=== PATIENT | female | born 1970 | race Caucasian/White ===

== ENCOUNTER 2019-06-28 11:28 | Inpatient (IN) ==
--- NOTE | 2019-06-28 11:47 | Emergency Department Note ---
Disposition Clinical Impression: Pyelonephritis, Liver mass Hypotension Qualifiers: Hypotension type: unspecified hypotension type Qualified Code(s): I95.9 - Hypotension, unspecified Disposition: Admitted As Inpatient Condition: Fair Referrals: Lindsey Forte CNP [Primary Care Provider] - Forms: ED Satisfaction Letter, Work/School Release Time of Disposition: 13:45 General Adult HPI - General Chief complaint: ED Abdominal Pain Stated complaint: Flank pain Time Seen by Provider: 06/28/19 11:34 Nursing Notes Reviewed: Yes Vital Signs Reviewed: Yes - History of Present Illness HPI Narrative: The patient was sent here directly from the urgent care this morning because of blood pressure of 82 and the stories that Saturday night, one and a half days ago she had sudden onset of right flank pain which resolved and then returned and said did have urinary frequency and pressure yesterday she has felt warm but has not checked her temperature. Did vomit today. No confusion according the who is in the room. He is concerned about a kidney stone. The patient does not have any blurred vision, rhinorrhea, cough or sneezing and no blood that she is seen in the urine or stool. No pain swallowing numbness of the extremities, skin rash or bruising of the skin. Social history: No smoking, alcohol, drugs - Related Data Allergies Allergy/AdvReac Type Severity Reaction Status Date / Time No Known Allergies Allergy Verified 06/28/19 11:55 All systems ED: reviewed and negative except as stated. Review of Systems: As Per HPI Physical Exam CONSTITUTIONAL: Alert and oriented X3, weak and tired in appearance but not confused HEAD: Normocephalic; atraumatic. EYES: PERRL, no scleral icterus. NOSE: The nose is normal in appearance without rhinorrhea RESP: Normal chest excursion with respiration; breath sounds clear and equal bilaterally; no wheezes, rhonchi, or rales CARD: Regular rhythm, without murmurs, rub or gallop ABD: Non-distended; non-tender, soft,without rigidity, rebound or guarding SKIN: Normal for age and race; warm and dry; no apparent lesions Back: Normal appearance, does have some right CVA tenderness Course Vital Signs Pulse Rate 96 06/28/19 11:30 Respiratory Rate 18 06/28/19 11:30 Blood Pressure 102/66 06/28/19 11:30 O2 Sat by Pulse Oximetry 97 06/28/19 11:30 Temperature 99.2 F 06/28/19 11:39 Pulse Rate 96 06/28/19 11:39 Respiratory Rate 18 06/28/19 11:39 Blood Pressure 114/70 06/28/19 11:55 O2 Sat by Pulse Oximetry 97 06/28/19 11:39 Oxygen Delivery Oxygen Delivery Room Air Medical Decision Making - MDM Narrative Medical decision making narrative: The patient may have pyelonephritis or ureterolithiasis and for that reason labs including lactate and the CT scan are ordered. Urine will be tested. The patient has not used any medications from urgent care. Blood pressure here initially 102 systolic. 2 L IV fluid bolus and started at this time. 1147 I did go back and check on the patient and reviewed the test results and also spoke with the nurse and spoke with the patient and her and she is given be admitted because her blood pressure initially was 82 at urgent care and even know her lactate is okay she is still hypotensive with a pressure in the low 100s and is still receiving IV fluids and she does have pyelonephritis but no evidence of ureteral obstruction so that is good. I did write for 2 g of Rocephin IV. Additionally she has a large liver mass and I did discuss this with the patient and she said maybe 10 or 15 years ago she had a spot on her liver but she said it was small and he told her not to worry about. She is in moderate to severe pain at this point and that is the other reason for admission and she will be given fentanyl and Zofran [id number] spoke wiht the hospitalist who accepts 1353 - Medical Records Medical records reviewed: Yes I reviewed the patient's medical records. - Lab Data Lab results reviewed: Yes I reviewed the patient's lab results. Result diagrams: 06/28/19 12:10 06/28/19 12:10 Lab Results 06/28/19 06/28/19 06/28/19 Range/Units 12:00 12:10 12:10 WBC 9.8 (4.3-11.1) K/mcL RBC 3.85 (3.82-4.97) M/mcL Hgb 12.2 (11.5-15.4) g/dL Hct 37.7 (35.3-44.9) % MCV 97.9 (83.0-100.0) fL MCH 31.7 (28.0-33.3) pg MCHC 32.4 (31.6-35.5) g/dL RDW 17.1 H (11.5-14.5) % Plt Count 166 (140-400) K/mcL MPV 10.8 (9.4-12.4) fL Sodium 137 (136-145) mEq/L Potassium 3.4 L (3.5-5.1) mEq/L Chloride 104 (98-107) mEq/L Carbon Dioxide 25 (23-29) mEq/L BUN 8 (6-20) mg/dL Creatinine 0.69 (0.60-1.20) mg/dL Est GFR ( Amer) > 60 (> 60) Est GFR (Non-Af Amer) > 60 (> 60) BUN/Creatinine Ratio 12 (6-26) Glucose 87 (70-105) mg/dL Calculated Osmolality 282 (280-300) Lactic Acid (0.5-2.2) mmol/L Calcium 9.3 (8.6-10.3) mg/dL Urine Color Yellow (Yellow) Urine Clarity Cloudy A (Clear) Urine pH 6.5 (5.0-8.0) pH Units Ur Specific [place] 1.007 L (1.010-1.025) Urine Protein 30 H (Neg-Trace) mg/dL Urine Glucose (UA) Normal (Normal) mg/dL Urine Ketones Negative (Negative) mg/dL Urine Blood Moderate H (Negative) Urine Nitrite Positive A (Negative) Urine Bilirubin Negative (Negative) Urine Urobilinogen Normal (Normal) mg/dL Ur Leukocyte Esterase Large H (Negative) Urine Microscopic RBC 3-5 H (0-3) per hpf Urine Microscopic WBC TNTC H (0-3) per hpf Ur Squamous Epith Cells Many H (None-Few) per lpf Urine Bacteria Many H (None-Few) per hpf Hyaline Casts None Seen (None-Few) per lpf 06/28/19 Range/Units 12:10 WBC (4.3-11.1) K/mcL RBC (3.82-4.97) M/mcL Hgb (11.5-15.4) g/dL Hct (35.3-44.9) % MCV (83.0-100.0) fL MCH (28.0-33.3) pg MCHC (31.6-35.5) g/dL RDW (11.5-14.5) % Plt Count (140-400) K/mcL MPV (9.4-12.4) fL Sodium (136-145) mEq/L Potassium (3.5-5.1) mEq/L Chloride (98-107) mEq/L Carbon Dioxide (23-29) mEq/L BUN (6-20) mg/dL Creatinine (0.60-1.20) mg/dL Est GFR ( Amer) (> 60) Est GFR (Non-Af Amer) (> 60) BUN/Creatinine Ratio (6-26) Glucose (70-105) mg/dL Calculated Osmolality (280-300) Lactic Acid 0.5 (0.5-2.2) mmol/L Calcium (8.6-10.3) mg/dL Urine Color (Yellow) Urine Clarity (Clear) Urine pH (5.0-8.0) pH Units Ur Specific [place] (1.010-1.025) Urine Protein (Neg-Trace) mg/dL Urine Glucose (UA) (Normal) mg/dL Urine Ketones (Negative) mg/dL Urine Blood (Negative) Urine Nitrite (Negative) Urine Bilirubin (Negative) Urine Urobilinogen (Normal) mg/dL Ur Leukocyte Esterase (Negative) Urine Microscopic RBC (0-3) per hpf Urine Microscopic WBC (0-3) per hpf Ur Squamous Epith Cells (None-Few) per lpf Urine Bacteria (None-Few) per hpf Hyaline Casts (None-Few) per lpf - Radiology Data Radiology results reviewed: Yes I reviewed the patient's radiology results.
[2019-06-28] MEDS: 0.9 % Sodium Chloride 1,000 ML IVC SCH ×3 (12:09→17:45)
[2019-06-28 12:14] LABS: Bilirubin,Urine Negative (Negative); Blood,Urine Moderate (Negative); Clarity,Urine Cloudy (Clear); Color,Urine Yellow (Yellow); Glucose,Urine (UA) Normal (Normal); Ketones,Urine Negative (Negative); Leukocyte Esterase,Urine Large (Negative); Nitrite,Urine Positive (Negative); PH,Urine 6.5 pH Units (5.0-8.0); Protein,Urine 30 mg/dL (Neg-Trace); Specific Gravity,Urine 1.007 (1.010-1.025); Urobilinogen,Urine Normal (Normal)
[2019-06-28 12:17] LABS: Bacteria,Urine Many per hpf (None-Few); Hyaline Casts,Urine None Seen per lpf (None-Few); Squamous Epithelial Cell,Urine Many per lpf (None-Few); WBC,Urine TNTC per hpf (0-3)
[2019-06-28 12:30] LABS: Hematocrit 37.7 % (35.3-44.9); Hemoglobin 12.2 g/dL (11.5-15.4); Mean Corpuscular HGB Conc 32.4 g/dL (31.6-35.5); Mean Corpuscular Hemoglobin 31.7 pg (28.0-33.3); Mean Corpuscular Volume 97.9 fL (83.0-100.0); Mean Platelet Volume 10.8 fL (9.4-12.4); Platelet Count 166 K/mcL (140-400); Red Blood Count 3.85 M/mcL (3.82-4.97); Red Cell Distribution Width 17.1 % (11.5-14.5); White Blood Count 9.8 K/mcL (4.3-11.1)
[2019-06-28 12:51] LABS: BUN/Creatinine Ratio 12 (6-26); Blood Urea Nitrogen 8 mg/dL (6-20); Calcium 9.3 mg/dL (8.6-10.3); Carbon Dioxide 25 mEq/L (23-29); Chloride 104 mEq/L (98-107); Glucose 87 mg/dL (70-105); Osmolality,Calculated 282 (280-300); Potassium 3.4 mEq/L (3.5-5.1); Sodium 137 mEq/L (136-145); eGFR For African Americans > 60 (> 60); eGFR For Non-African Americans > 60 (> 60)
[2019-06-28] MEDS ORDERED: cefTRIAXone 2,000 MG in Water for inj. (sterile) 20 ML IVP ONE (13:42)
[2019-06-28] MEDS ORDERED: *HR* FentaNYL (PF) 100 MCG/2 ML VIAL IVP ONE (13:42)
[2019-06-28] MEDS ORDERED: Ondansetron 4 MG/2 ML VIAL IVP ONE (13:42)
--- NOTE | 2019-06-28 14:11 | Event Note ---
Date of Encounter: 06/28/19 Time of Encounter: 14:45 to serve as attending attestation pending completion of H&P by resident physician I examined this patient and my medical decision-making was reviewed with the Resident Physician Dr Martinez. I agree with the documented findings, disposition and treatment plan as described except to the extent set forth below. Ms Emerson is being observed for UTI and Suspected Pyelonephritis awake, at bedside. admits to right flank and cva pain, some nausea but denies emesis and is tolerating oral intake. she is chattering her teeth and is cold with IVF running. She can control it and denies rigors. temp taken at bedside at that time normal. discussed test results and answered all questions. gen- alert, awake,appears stated age, fatigued appearing cv- reg rate and rhythm, normal s1,s2, no murmurs appreciated lungs- ctabl, no wheezing, rhonchi or crackles abd- soft, diffusely guards in anticipation of palpation, but no rigidity, non distended, + bs neuro- AAOx3, CN grossly intact, no focal deficits Flank Pain UTI and Suspected Pyelonephritis She does not meet SIRS or sepsis criteria at this time, has only HR in 90s no prior ucxs for comparison, CT a/p reviewed -cont IV rocephin, IV fluids, prn pain control, ucx ordered as it does not appear to have been sent from ED based on orders -send hcg test Incidental Large Liver Mass 15.3x14.8x17.[address] reviewed- large hemangioma vs focal nodular hyperplasia -obtain hepatic protocol MRI for further eval Hypokalemia- PO repletion further dx and plan as noted by resident
--- NOTE | 2019-06-28 14:17 | Internal Med History&Physical ---
<Reshma Diane - Last Filed: 06/28/19 15:34> Date of Encounter: 06/28/19 Internal Medicine - H&P: HPI History of present illness: Ms. Emerson is a 48 year old female Internal Medicine - H&P: Meds Multivitamin [Daily Multiple Vitamin] 1 each PO DAILY 06/28/19 [History] Allergy/AdvReac Type Severity Reaction Status Date / Time No Known Allergies Allergy Verified 06/28/19 11:55 All Systems PM: A 10-system review of systems was performed and is negative for pertinent findings except as documented above in the HPI. - Constitutional Vitals: Temp Pulse Resp BP Pulse Ox 99.2 F 97 16 116/71 97 06/28/19 14:05 06/28/19 14:05 06/28/19 14:05 06/28/19 14:05 06/28/19 14:05 Internal Med - H&P Results - Labs CBC & Chem 7: 06/28/19 12:10 06/28/19 12:10 Labs: Short CBC 06/28/19 Range/Units 12:10 WBC 9.8 (4.3-11.1) K/mcL Hgb 12.2 (11.5-15.4) g/dL Hct 37.7 (35.3-44.9) % Plt Count 166 (140-400) K/mcL BMP 06/28/19 12:10 Sodium 137 Potassium 3.4 L Chloride 104 Carbon Dioxide 25 BUN 8 Creatinine 0.69 Glucose 87 Calcium 9.3 Urine 06/28/19 Range/Units 12:00 Urine Color Yellow (Yellow) Urine Clarity Cloudy A (Clear) Urine pH 6.5 (5.0-8.0) pH Units Ur Specific [place] 1.007 L (1.010-1.025) Urine Protein 30 H (Neg-Trace) mg/dL Urine Glucose (UA) Normal (Normal) mg/dL - Impressions ITS Impressions Chest X-Ray 06/28/19 12:11 IMPRESSION: Negative chest D/ / Ranjith Bill MD / Ranjith Bill MD Interpreting Provider: Ranjith Bill MD Abdomen/Pelvis CT 06/28/19 13:02 IMPRESSION: Large right hepatic mass measuring 15.3 x 14.8 x 17.2 cm with a central scar. Differential considerations include focal nodular hyperplasia and large cavernous hemangiomas. Otherwise, certain carcinomas could have this appearance. Hepatic protocol MRI recommended for further evaluation. Right perinephric inflammation and right-sided urothelial thickening suggesting ascending infectious process. No nephrolithiasis or urinary obstruction. D/ / Brett Haynes MD / Brett Haynes MD Interpreting Provider: Brett Haynes MD - Time Spent With Patient Total time spent is greater than 50% in coordination of care (as documented) at patient's floor/unit and/or counseling patient: - Attending Attestation I examined this patient and my medical decision-making was reviewed with the Resident Physician Dr Martinez. I agree with the documented findings, disposition and treatment plan as described except to the extent set forth below. Ms Emerson is being observed for UTI and Suspected Pyelonephritis awake, at bedside. admits to right flank and cva pain, some nausea but denies emesis and is tolerating oral intake. she is chattering her teeth and is cold with IVF running. She can control it and denies rigors. temp taken at bedside at that time normal. discussed test results and answered all questions. gen- alert, awake,appears stated age, fatigued appearing cv- reg rate and rhythm, normal s1,s2, no murmurs appreciated lungs- ctabl, no wheezing, rhonchi or crackles abd- soft, diffusely guards in anticipation of palpation, but no rigidity, non distended, + bs neuro- AAOx3, CN grossly intact, no focal deficits Flank Pain UTI and Suspected Pyelonephritis She does not meet SIRS or sepsis criteria at this time, has only HR in 90s no prior ucxs for comparison, CT a/p reviewed -cont IV rocephin, IV fluids, prn pain control, ucx ordered as it does not appear to have been sent from ED based on orders -send hcg test Incidental Large Liver Mass 15.3x14.8x17.[address] reviewed- large hemangioma vs focal nodular hyperplasia -obtain hepatic protocol MRI for further eval Hypokalemia- PO repletion further dx and plan as noted by resident <Olegario Martinez S - Last Filed: 06/28/19 22:17> Date of Encounter: 06/28/19 Time of Encounter: 14:17 Internal Medicine - H&P: HPI Chief complaint: Right flank pain Admitted From: Emergency Dept Plans for Post Hospital Care: Home History of present illness: Ms. Emerson is a 48 year old female who is being admitted to our service for pyelonephritis. She states that Saturday night she had mild pain in her right lower back, she thought she had strained a muscle and took some ibuprofen with resolution of her pain. She was pain-free Saturday morning, but began having the same right lower back pain through the afternoon and into the evening on Saturday. The pain worsened through the day, became severe overnight, and was associated with subjective fevers, chills and weakness. She presented to an outside urgent care, where her blood pressure was found to be in the low 80s over the low 60s, she was quickly re-directed to our facility. On presentation to our ED, a CBC was normal, BMP showed only mildly low potassium at 3.4, and urinalysis was positive for urinary tract infection with hematuria. Chest x-ray was normal, CT scan showed a very large hepatic mass, as well as Right perinephric inflammation and right-sided urothelial thickening suggesting ascending infectious process. No nephrolithiasis or urinary obstruction. In the ED, Patient received 75 g of fentanyl, Zofran, 2 L normal saline, 2 g Rocephin. Her pain is currently well controlled on the fentanyl which she received at 13:45. Right now, the patient's complaining of chills, and shivering in spite of wearing several blankets. She reports weakness, fevers, chills, nausea, vomiting, numbness in her feet which she attributes to being cold. She reports the pain began in her right lower back and radiated around to the front of her abdomen and down her legs, described the pain as a spasming, initially responded to OTC pain medications, but was not relieved by same pain meds today. Past Med Surg Social Fam HX - Past Medical History Medical history: no medical history Psychiatric history: no psych history - Social History Smoking Status: Former smoker All Systems PM: A 10-system review of systems was performed and is negative for pertinent findings except as documented above in the HPI. Review of systems: Patient reporting weakness, fevers, chills, nausea, vomiting, numbness in her feet secondary to cold Patient denies chest pain, shortness of breath, headache, blurry vision, double vision, trouble swallowing or speaking, hematemesis, diarrhea, constipation, hematochezia, hematuria, vaginal bleeding, any other significant complaints at this time - Constitutional Vitals: Temp Pulse Resp BP Pulse Ox 99.2 F 97 16 116/71 97 06/28/19 14:05 06/28/19 14:05 06/28/19 14:05 06/28/19 14:05 06/28/19 14:05 Exam: Gen: Awake and alert, Ill appearing, moderate distress, well-nourished, well kempt. Pts is at the bedside, she is shivering in spite of numerous blankets, the shivering seems to judy when she speaks. Head: Normocephalic, atraumatic Eyes: EOMI, no scleral icterus ENT: Mucous membranes moist, no oropharyngeal erythema CV: S1-S2 present, regular at a rate of approximately 90, no murmurs rubs or gallops Pulm: CTAB, not tachypneic, no respiratory distress, no increased work of breathing Abd: Soft, mildly tender to palpation RLQ, nondistended, no reboundtenderness with some voluntary guarding. EXT: Grossly intact motor strength in all 4 extremities, no lower extremity edema, no distal cyanosis or pallor. Capillary refill in bilateral lower extremities <2 seconds Skin: Warm, dry, intact, no rashes or lesions noted Neuro: Cranial nerves II-XII grossly intact, no focal neurologic deficits Psych: Mood and affect altered by illness, Answers questions with intact judgment, appropriate insight, and linear thought Internal Med - H&P Results - Labs CBC & Chem 7: 06/28/19 12:10 06/28/19 12:10 Labs: Short CBC 06/28/19 Range/Units 12:10 WBC 9.8 (4.3-11.1) K/mcL Hgb 12.2 (11.5-15.4) g/dL Hct 37.7 (35.3-44.9) % Plt Count 166 (140-400) K/mcL BMP 06/28/19 12:10 Sodium 137 Potassium 3.4 L Chloride 104 Carbon Dioxide 25 BUN 8 Creatinine 0.69 Glucose 87 Calcium 9.3 Urine 06/28/19 Range/Units 12:00 Urine Color Yellow (Yellow) Urine Clarity Cloudy A (Clear) Urine pH 6.5 (5.0-8.0) pH Units Ur Specific [place] 1.007 L (1.010-1.025) Urine Protein 30 H (Neg-Trace) mg/dL Urine Glucose (UA) Normal (Normal) mg/dL - Impressions ITS Impressions Chest X-Ray 06/28/19 12:11 IMPRESSION: Negative chest D/ / Ranjith Bill MD / Ranjith Bill MD Interpreting Provider: Ranjith Bill MD Abdomen/Pelvis CT 06/28/19 13:02 IMPRESSION: Large right hepatic mass measuring 15.3 x 14.8 x 17.2 cm with a central scar. Differential considerations include focal nodular hyperplasia and large cavernous hemangiomas. Otherwise, certain carcinomas could have this appearance. Hepatic protocol MRI recommended for further evaluation. Right perinephric inflammation and right-sided urothelial thickening suggesting ascending infectious process. No nephrolithiasis or urinary obstruction. D/ / Brett Haynes MD / Brett Haynes MD Interpreting Provider: Brett Haynes MD - Assessment and Plan (1) Pyelonephritis Current Visit: Yes Status: Acute Assessment and plan: Patient with significant right-sided back/flank pain Urinalysis shows florid infection with hematuria Subjective fevers and chills, temperature taken at bedside by myself was 98.9 * 2 g Rocephin given in the ED, continue 1 g daily * Lab was contacted and order for urine cultures was added, using the initial sample * Pain management with tramadol while inpatient * BMP grossly normal, oral potassium ordered. Repeat BMP and CBC every morning * Zofran ODT for nausea and vomiting (2) Hypotension Current Visit: Yes Status: Acute Assessment and plan: Blood pressures in our facility have ranged from 102/66 to 116/71 2 L fluid bolus given while in the ED Patient without any history of cardiac or hemodynamic problems in the past * Vital sign checks Q4 hrs x2, Q shift thereafter Qualifiers: Hypotension type: unspecified hypotension type Qualified Code(s): I95.9 - Hypotension, unspecified (3) Liver mass Current Visit: Yes Status: Acute Assessment and plan: Incidental finding of very large liver mass, likely represents hemangioma Patient's pain has only been present for the last 2 days, and size of the liver mass suggests it has been growing for a very long time Laboratory evaluation showed liver function within normal limits * Avoid NSAIDs * Follow-up outpatient - Summary of Assessment and Plan Summary of Assessment and Plan: * IV Rocephin 1 g daily * Urine cultures * Pain management * Antiemetics * Fluid replenishment * Advance diet as tolerated tomorrow * Outpatient follow-up for incidental liver finding - Time Spent With Patient Total time spent is greater than 50% in coordination of care (as documented) at patient's floor/unit and/or counseling patient:
[2019-06-28] MEDS ORDERED: Ondansetron 4 MG/2 ML VIAL IVP PRN (14:21)
[2019-06-28] MEDS ORDERED: Naloxone 0.4 MG/ML INJ IVP PRN (14:25)
[2019-06-28] MEDS ORDERED: traMADol 50 MG TABLET PO PRN (14:25)
[2019-06-28] MEDS ORDERED: *HR* HYDROcodone/Acet 5/325 mg TABLET PO PRN (15:27)
[2019-06-28] MEDS ORDERED: *HR* OxyCODONE Immed Rel 5 MG TABLET PO PRN (15:27)
[2019-06-28 16:21] LABS: Alanine Aminotransferase 19 Units/L (7-52); Albumin 3.9 g/dL (3.5-5.7); Albumin/Globulin Ratio 1.3 (1.1-2.2); Alkaline Phosphatase 110 Units/L (34-104); Aspartate Amino Transferase 27 Units/L (13-39); Bilirubin,Direct 0.4 mg/dL (0.0-0.2); Bilirubin,Indirect 0.8 mg/dL (0.0-1.2); Bilirubin,Total 1.2 mg/dL (0.3-1.0); Globulin 2.9 g/dL (2.4-3.5); Total Protein 6.8 g/dL (6.4-8.9)
[2019-06-28] MEDS ORDERED: Ondansetron ODT 4 MG TAB.RAPDIS SL STA (17:08)
[2019-06-28] MEDS ORDERED: Acetaminophen IV 1,000 MG/100 ML INFUS..BTL IVPB STA (17:26)
[2019-06-29] MEDS: 0.9 % Sodium Chloride 1,000 ML IVC SCH ×4 (01:26→22:28)
[2019-06-29] MEDS: Acetaminophen 325 MG TABLET PO PRN ×3 (03:33→18:44)
[2019-06-29 04:21] LABS: Basophils % 0.2 %; Hematocrit 32.9 % (35.3-44.9); Immature Granulocytes % 0.7 % (0-4); Lymphocytes # 0.4 K/mcL (0.6-4.6); Lymphocytes % 3.9 %; Mean Corpuscular HGB Conc 31.9 g/dL (31.6-35.5); Mean Corpuscular Hemoglobin 31.8 pg (28.0-33.3); Mean Corpuscular Volume 99.7 fL (83.0-100.0); Mean Platelet Volume 10.5 fL (9.4-12.4); Monocytes # 0.9 K/mcL (0.0-1.3); Monocytes % 8.8 %; Neutrophils # 9.1 K/mcL (1.6-8.9); Platelet Count 175 K/mcL (140-400); Red Cell Distribution Width 17.4 % (11.5-14.5); Segmented Neutrophils % 86.4 %; White Blood Count 10.5 K/mcL (4.3-11.1)
[2019-06-29 04:26] LABS: Hemoglobin 10.5 g/dL (11.5-15.4)
[2019-06-29 04:29] LABS: INR 1.5; Prothrombin Time 17.2 Seconds (9.4-12.1)
[2019-06-29 04:40] LABS: Alanine Aminotransferase 16 Units/L (7-52); Albumin 3.3 g/dL (3.5-5.7); Albumin/Globulin Ratio 1.3 (1.1-2.2); Alkaline Phosphatase 96 Units/L (34-104); Aspartate Amino Transferase 22 Units/L (13-39); BUN/Creatinine Ratio 13 (6-26); Bilirubin,Total 0.8 mg/dL (0.3-1.0); Blood Urea Nitrogen 8 mg/dL (6-20); Calcium 7.7 mg/dL (8.6-10.3); Carbon Dioxide 21 mEq/L (23-29); Chloride 106 mEq/L (98-107); Globulin 2.5 g/dL (2.4-3.5); Glucose 117 mg/dL (70-105); Magnesium 1.6 mg/dL (1.6-2.6); Osmolality,Calculated 277 (280-300); Potassium 3.4 mEq/L (3.5-5.1); Sodium 134 mEq/L (136-145); Total Protein 5.8 g/dL (6.4-8.9); eGFR For African Americans > 60 (> 60); eGFR For Non-African Americans > 60 (> 60)
[2019-06-29] MEDS ORDERED: 0.9 % Sodium Chloride 1,000 ML IVC SCH (07:00)
[2019-06-29] MEDS ORDERED: 0.9 % Sodium Chloride 500 ML IVC ONE (08:07)
--- NOTE | 2019-06-29 08:08 | Internal Med Progress Note ---
<Reshma Diane - Last Filed: 06/29/19 12:48> Hospitalist Progress Note - Encounter Date of Encounter: 06/29/19 - Exam Vitals: Temp Pulse Resp BP Pulse Ox 99.8 F H 81 15 122/67 95 06/29/19 11:32 06/29/19 10:09 06/29/19 10:09 06/29/19 10:09 06/29/19 10:09 - Time Spent with Patient Total time spent is greater than 50% in coordination of care (as documented) at patient's floor/unit and/or counseling patient: Internal Medicine: Result - Labs CBC & Chem 7: 06/29/19 04:06 06/29/19 04:06 Labs: Short CBC 06/29/19 Range/Units 04:06 WBC 10.5 (4.3-11.1) K/mcL Hgb 10.5 L D (11.5-15.4) g/dL Hct 32.9 L (35.3-44.9) % Plt Count 175 (140-400) K/mcL Neutrophils # 9.1 H (1.6-8.9) K/mcL BMP 06/28/19 06/29/19 12:10 04:06 Sodium 137 134 L Potassium 3.4 L 3.4 L Chloride 104 106 Carbon Dioxide 25 21 L BUN 8 8 Creatinine 0.69 0.64 Glucose 87 117 H Calcium 9.3 7.7 L Liver Function 06/28/19 06/29/19 Range/Units 12:10 04:06 Total Bilirubin 1.2 H 0.8 (0.3-1.0) mg/dL Direct Bilirubin 0.4 H (0.0-0.2) mg/dL AST 27 22 (13-39) Units/L ALT 19 16 (7-52) Units/L Alkaline Phosphatase 110 H 96 (34-104) Units/L Albumin 3.9 3.3 L (3.5-5.7) g/dL - ABG Interpretation ABG results: PT/INR, D-dimer PT 17.2 Seconds (9.4-12.1) H 06/29/19 04:06 - Impressions Impressions Abdomen/Pelvis CT 06/28/19 13:02 IMPRESSION: Large right hepatic mass measuring 15.3 x 14.8 x 17.2 cm with a central scar. Differential considerations include focal nodular hyperplasia and large cavernous hemangiomas. Otherwise, certain carcinomas could have this appearance. Hepatic protocol MRI recommended for further evaluation. Right perinephric inflammation and right-sided urothelial thickening suggesting ascending infectious process. No nephrolithiasis or urinary obstruction. D/ / Brett Haynes MD / Brett Haynes MD Interpreting Provider: Brett Haynes MD Consult Discharge Plan - Plan Referrals: Lindsey Forte, RECEPTIONIST CLERK [Primary Care Provider] - - Attending Attestation I examined this patient and my medical decision-making was reviewed with the Resident Physician Dr Sparrow. I agree with the documented findings, disposition and treatment plan as described except to the extent set forth below. Ms Emerson is being observed for UTI and Suspected Pyelonephritis awake, no family present. Had fevers and chills overnight. abd pain currently tolerable, fatigued. no nausea or emesis. cont right flank pain gen- alert, awake,appears stated age, fatigued appearing cv- reg rate and rhythm, normal s1,s2, no murmurs appreciated lungs- ctabl, no wheezing, rhonchi or crackles abd- soft, diffusely guards in anticipation of palpation, but no rigidity, non distended, + bs neuro- AAOx3, CN grossly intact, no focal deficits Flank Pain UTI and Suspected Pyelonephritis She does not meet sepsis criteria at this time,fever but no HR, RR or wbc elevation -broaden abx given fevers overnight while awaiting cxs, recx if fevers today, IV fluids, prn pain control w BP parameters in place Incidental Large Liver Mass 15.3x14.8x17.[address] reviewed- large hemangioma vs focal nodular hyperplasia -obtain hepatic protocol MRI for further eval when pt medically stable and will discuss further w cycle consultant as needed Acute anemia without evidence of bleeding- will monitor closely, has been receiving high rate IVFs, repeat hgb this afternoon, if worsened abd pain or significant hgb dropping w pain will re image pt further dx and plan as noted by resident <Garrick Sparrow - Last Filed: 06/29/19 18:15> Hospitalist Progress Note - Encounter Date of Encounter: 06/29/19 Time of Encounter: 08:25 - Subjective Interval History: patient is resting in bed at time of examination. She does appear lethargic on examination. She says that overnight she did have significant fevers, chills and was sweating some overnight. She says as of this morning she did develop some chest tightness and has some cough as well as a sore throat. She says that they feel like URI-like symptoms, and that they developed just a little bit before I entered the room. She is not having any other significant symptoms this morning. She did have multiple episodes of urination this morning which were nonpainful and had no blood or discharge. She is not having any significant pelvic or back pain. Nor is she having any abdominal pain. She has no other acute complaints at this time. - Exam Vitals: Temp Pulse Resp BP Pulse Ox 98.3 F 78 15 89/54 94 06/29/19 06:29 06/29/19 06:29 06/29/19 06:29 06/29/19 06:29 06/29/19 06:29 Exam: Gen: Vitals noted. patient appears lethargic Eyes: anicteric sclerae, moist conjunctivae; no lid-lag HENT: Atraumatic; oropharynx clear with moist mucous membranes and no mucosal ulcerations; normal hard and soft palate Neck: Trachea midline; supple, no thyromegaly or lymphadenopathy Cardiac: RRR, no murmur, +S1/S2 Pulmonary: CTA bilaterally, no wheezes, rales or rhonchi, equal chest expansion Abdomen: soft, nontender, no guarding. No masses or hepatosplenomegaly MSK: ROM intact, no joint swelling noted Extremities: no BLE edema, nontender calf, no cyanosis or clubbing Skin: Normal temperature, turgor and texture; no rash, ulcers or subcutaneous nodules Neuro: moves all extremities, no focal deficits. Psych: Appropriate mood and behavior. A&Ox3 - Assessment and Plan (1) Sepsis Current Visit: Yes Status: Acute Assessment and Plan: sepsis secondary to acute pyelonephritis SIRS Criteria: T 102, HR 103, RR 20, BP 88/55. sources pyelonephritis Abdominal CT on 06/28/19 demonstrates right perinephric inflammation and right- sided urothelial thickening suggesting ascending infectious process UA on admission demonstrated significant nitrates and leukocyte Estrace as well as too numerous to count WBCs The patient does have no more complaints of urinary frequency, dysuria, hematuria this time, however is clinically fever having significantly Despite adequate fluid resuscitation and antibiotic She has received nearly 3 L of fluids IV, however her blood pressure does remain soft Cultures 06/28/19 blood cultures 2 NGTD 06/28/19 urine cultures NGTD Antibiotics Rocephin Day 2 Plan Broaden coverage to vancomycin and Zosyn Pending cultures Bolus 500 mL, continue maintenance fluids at 150 mL an hour afterward I will check a flu swab due to the patient's symptoms If the patient continues to have fevers, may consider repeat cultures and chest x-ray (2) Pyelonephritis Current Visit: Yes Status: Acute Assessment and Plan: pyelonephritis, treatment and plan as above (3) Liver mass Current Visit: Yes Status: Acute Assessment and Plan: Incidental finding of very large liver mass, likely represents hemangioma Patient's pain has only been present for the last 2 days, and size of the liver mass suggests it has been growing for a very long time Laboratory evaluation showed liver function within normal limits our goal would be to attempt for an MRI today, however the patient cannot tolerate this given the severity of her infection We will attempt for MRI tomorrow DVT Prophylaxis: SCDs - Time Spent with Patient Total time spent is greater than 50% in coordination of care (as documented) at patient's floor/unit and/or counseling patient: Internal Medicine: Result - Labs CBC & Chem 7: 06/29/19 13:03 06/29/19 04:06 Labs: Short CBC 06/28/19 06/29/19 Range/Units 12:10 04:06 WBC 9.8 10.5 (4.3-11.1) K/mcL Hgb 12.2 10.5 L D (11.5-15.4) g/dL Hct 37.7 32.9 L (35.3-44.9) % Plt Count 166 175 (140-400) K/mcL Neutrophils # 9.1 H (1.6-8.9) K/mcL BMP 06/28/19 06/29/19 12:10 04:06 Sodium 137 134 L Potassium 3.4 L 3.4 L Chloride 104 106 Carbon Dioxide 25 21 L BUN 8 8 Creatinine 0.69 0.64 Glucose 87 117 H Calcium 9.3 7.7 L Liver Function 06/28/19 06/29/19 Range/Units 12:10 04:06 Total Bilirubin 1.2 H 0.8 (0.3-1.0) mg/dL Direct Bilirubin 0.4 H (0.0-0.2) mg/dL AST 27 22 (13-39) Units/L ALT 19 16 (7-52) Units/L Alkaline Phosphatase 110 H 96 (34-104) Units/L Albumin 3.9 3.3 L (3.5-5.7) g/dL Urine 06/28/19 Range/Units 12:00 Urine Color Yellow (Yellow) Urine Clarity Cloudy A (Clear) Urine pH 6.5 (5.0-8.0) pH Units Ur Specific [place] 1.007 L (1.010-1.025) Urine Protein 30 H (Neg-Trace) mg/dL Urine Glucose (UA) Normal (Normal) mg/dL - ABG Interpretation ABG results: PT/INR, D-dimer PT 17.2 Seconds (9.4-12.1) H 06/29/19 04:06 - Impressions Impressions Chest X-Ray 06/28/19 12:11 IMPRESSION: Negative chest D/ / Ranjith Bill MD / Ranjith Bill MD Interpreting Provider: Ranjith Bill MD Abdomen/Pelvis CT 06/28/19 13:02 IMPRESSION: Large right hepatic mass measuring 15.3 x 14.8 x 17.2 cm with a central scar. Differential considerations include focal nodular hyperplasia and large cavernous hemangiomas. Otherwise, certain carcinomas could have this appearance. Hepatic protocol MRI recommended for further evaluation. Right perinephric inflammation and right-sided urothelial thickening suggesting ascending infectious process. No nephrolithiasis or urinary obstruction. D/ / Brett Haynes MD / Brett Haynes MD Interpreting Provider: Brett Haynes MD <Garrick Sparrow - Last Filed: 06/29/19 18:15> (1) Sepsis Qualifiers: Sepsis type: sepsis due to unspecified organism Sepsis acute organ dysfunction status: without acute organ dysfunction Qualified Code(s): A41.9 - Sepsis, unspecified organism
[2019-06-29] MEDS ORDERED: cefTRIAXone 1,000 MG in Water for inj. (sterile) 10 ML IVP ONE (10:22)
[2019-06-29] MEDS: Piperacillin/Tazobactam 3.375 GM in 0.9 % Sodium Chloride Mini Bag 100 ML IVPB SCH ×2 (11:00→16:01)
[2019-06-29 13:50] LABS: Hematocrit 33.5 % (35.3-44.9); Hemoglobin 10.6 g/dL (11.5-15.4)
[2019-06-29] MEDS ORDERED: cefTRIAXone 1,000 MG in Water for inj. (sterile) 10 ML IVP SCH (14:00)
[2019-06-29] MEDS ORDERED: *HR* HYDROcodone/Acet 5/325 mg TABLET PO PRN (14:42)
[2019-06-29] MEDS: *HR* HYDROcodone/Acet 5/325 mg TABLET PO PRN ×2 (15:09→21:05)
--- NOTE | 2019-06-29 18:32 | Electrocardiograph Report ---
[place] [address] Test Date: 2019-06-28 Pat Name: Jenna Emerson Department: 115 Room: 3A44 Gender: F [employer]: : 1970 Requested By: Reshma Diane Order Number: [id number] Reading MD: Vincent Cook Measurements Intervals [place] Rate: 97 P: 67 TX: 119 QRS: 63 QRSD: 81 T: 14 QT: 337 QTc: 392 Interpretive Statements SINUS RHYTHM Electronically Signed On 06-29-2019 16:44:44 EDT by Vincent Cook
[2019-06-29] MEDS: Ondansetron 4 MG/2 ML VIAL IVP PRN (18:44)
[2019-06-29] MEDS ORDERED: *HR* Promethazine 25 MG/ML VIAL IVP ONE (23:48)
[2019-06-30] MEDS: Piperacillin/Tazobactam 3.375 GM in 0.9 % Sodium Chloride Mini Bag 100 ML IVPB SCH ×2 (00:09→08:03)
[2019-06-30] MEDS: Acetaminophen 325 MG TABLET PO PRN ×2 (02:22→12:00)
[2019-06-30] MEDS: 0.9 % Sodium Chloride 1,000 ML IVC SCH ×2 (05:37→15:24)
[2019-06-30] MEDS: *HR* HYDROcodone/Acet 5/325 mg TABLET PO PRN ×2 (05:37→19:08)
[2019-06-30] MEDS: Ondansetron 4 MG/2 ML VIAL IVP PRN ×2 (05:41→13:32)
[2019-06-30 06:16] LABS: Basophils % 0.3 %; Eosinophils % 0.1 %; Immature Granulocytes % 0.4 % (0-4); Lymphocytes # 0.7 K/mcL (0.6-4.6); Lymphocytes % 8.6 %; Mean Corpuscular HGB Conc 31.3 g/dL (31.6-35.5); Mean Corpuscular Hemoglobin 31.8 pg (28.0-33.3); Mean Corpuscular Volume 101.9 fL (83.0-100.0); Mean Platelet Volume 10.5 fL (9.4-12.4); Monocytes # 0.6 K/mcL (0.0-1.3); Monocytes % 7.3 %; Neutrophils # 6.6 K/mcL (1.6-8.9); Platelet Count 147 K/mcL (140-400); Red Blood Count 3.14 M/mcL (3.82-4.97); Red Cell Distribution Width 17.4 % (11.5-14.5); Segmented Neutrophils % 83.3 %; White Blood Count 7.9 K/mcL (4.3-11.1)
[2019-06-30 06:23] LABS: INR 1.2; Prothrombin Time 13.8 Seconds (9.4-12.1)
[2019-06-30 06:35] LABS: Alanine Aminotransferase 17 Units/L (7-52); Albumin 2.9 g/dL (3.5-5.7); Albumin/Globulin Ratio 1.1 (1.1-2.2); Alkaline Phosphatase 106 Units/L (34-104); Aspartate Amino Transferase 23 Units/L (13-39); BUN/Creatinine Ratio 18 (6-26); Bilirubin,Total 0.6 mg/dL (0.3-1.0); Blood Urea Nitrogen 10 mg/dL (6-20); Calcium 7.5 mg/dL (8.6-10.3); Carbon Dioxide 19 mEq/L (23-29); Chloride 108 mEq/L (98-107); Globulin 2.7 g/dL (2.4-3.5); Glucose 75 mg/dL (70-105); Magnesium 1.8 mg/dL (1.6-2.6); Osmolality,Calculated 284 (280-300); Potassium 3.2 mEq/L (3.5-5.1); Sodium 138 mEq/L (136-145); Total Protein 5.6 g/dL (6.4-8.9); eGFR For African Americans > 60 (> 60); eGFR For Non-African Americans > 60 (> 60)
[2019-06-30] MEDS ORDERED: Aminoglycoside Consult 1 EACH MC ONE (07:46)
--- NOTE | 2019-06-30 08:37 | Internal Med Progress Note ---
<Reshma Diane - Last Filed: 06/30/19 13:13> Hospitalist Progress Note - Encounter Date of Encounter: 06/30/19 - Exam Vitals: Temp Pulse Resp BP Pulse Ox 97.6 F 67 16 110/71 96 06/30/19 11:41 06/30/19 11:41 06/30/19 11:41 06/30/19 11:41 06/30/19 11:41 - Time Spent with Patient Total time spent is greater than 50% in coordination of care (as documented) at patient's floor/unit and/or counseling patient: Internal Medicine: Result - Labs CBC & Chem 7: 06/30/19 05:32 06/30/19 05:32 Labs: Short CBC 06/29/19 06/30/19 Range/Units 13:03 05:32 WBC 7.9 (4.3-11.1) K/mcL Hgb 10.6 L 10.0 L (11.5-15.4) g/dL Hct 33.5 L 32.0 L (35.3-44.9) % Plt Count 147 (140-400) K/mcL Neutrophils # 6.6 (1.6-8.9) K/mcL BMP 06/30/19 05:32 Sodium 138 Potassium 3.2 L Chloride 108 H Carbon Dioxide 19 L BUN 10 Creatinine 0.55 L Glucose 75 Calcium 7.5 L Liver Function 06/30/19 Range/Units 05:32 Total Bilirubin 0.6 (0.3-1.0) mg/dL AST 23 (13-39) Units/L ALT 17 (7-52) Units/L Alkaline Phosphatase 106 H (34-104) Units/L Albumin 2.9 L (3.5-5.7) g/dL - ABG Interpretation ABG results: PT/INR, D-dimer PT 13.8 Seconds (9.4-12.1) H 06/30/19 05:32 Consult Discharge Plan - Plan Referrals: Lindsey Forte, BED RUBBER [Primary Care Provider] - - Attending Attestation I examined this patient and my medical decision-making was reviewed with the Resident Physician Dr Sparrow. I agree with the documented findings, disposition and treatment plan as described except to the extent set forth below. Ms Emerson is being observed for UTI and Suspected Pyelonephritis awake, sweats and chills overnight but abd pain improving and overall feeling more comofrable. exhausted and generally weak. tolerating liquids but nauseated with smell of food gen- alert, awake,appears stated age cv- reg rate and rhythm, normal s1,s2 lungs- ctabl, normal resp effort on room air abd- soft, diffusely tender, but no guarding, no rigidity, non distended, + bs neuro- AAOx3 E Coli UTI and Suspected Pyelonephritis -cxs reviewed, zosyn dc and begin rocephin, cont to monitor for fevers, bl cxs ngtd she was NOT septic on admission, met criteria overnight night 06/29 from 1-3 am only on VS check but by morning no longer met criteria. She is not currently septic. Incidental Large Liver Mass 15.3x14.8x17.[address] reviewed- large hemangioma vs focal nodular hyperplasia -obtain hepatic protocol MRI for further eval, ordered for today given clinical improvement Acute anemia without evidence of bleeding, stable - will monitor closely, has been receiving high rate IVFs, reduce ivfs today further dx and plan as noted by resident <Garrick Sparrow - Last Filed: 06/30/19 16:08> Hospitalist Progress Note - Encounter Date of Encounter: 06/30/19 Time of Encounter: 08:33 - Subjective Interval History: the patient is seen and examined at bedside. She says that she is feeling significantly better than she was yesterday, and her energy level has improved substantially. Overall she does not feel like she is as chilled she was before, and is not as malaised. She did have one episode of fever overnight however this broke relatively quickly and she has not had any problems since.she denies any urinary symptoms including frequency, dysuria, hematuria, although she does still have some minimal right-sided pelvic pain and some back pain. She does admit to minimal shortness of breath and cough, however no sputum production. - Exam Vitals: Temp Pulse Resp BP Pulse Ox 98.6 F 74 16 108/71 95 06/30/19 02:15 06/30/19 02:15 06/30/19 02:15 06/30/19 02:15 06/30/19 02:15 Exam: Gen: Vitals noted. NAD Eyes: anicteric sclerae, moist conjunctivae; no lid-lag HENT: Atraumatic; oropharynx clear with moist mucous membranes and no mucosal ulcerations; normal hard and soft palate Neck: Trachea midline; supple, no thyromegaly or lymphadenopathy Cardiac: RRR, no murmur, +S1/S2 Pulmonary: CTA bilaterally, no wheezes, rales or rhonchi, equal chest expansion Abdomen: soft, nontender, no guarding. No masses or hepatosplenomegaly MSK: ROM intact, no joint swelling noted Extremities: no BLE edema, nontender calf, no cyanosis or clubbing Skin: Normal temperature, turgor and texture; no rash, ulcers or subcutaneous no dules Neuro: moves all extremities, no focal deficits. Psych: Appropriate mood and behavior. A&Ox3 - Assessment and Plan (1) Sepsis Current Visit: Yes Status: Acute Assessment and Plan: sepsis secondary to acute pyelonephritis, resolved SIRS Criteria at time of diagnosis: T 102, HR 103, RR 20, BP 88/55. sources pyelonephritis Abdominal CT on 06/28/19 demonstrates right perinephric inflammation and right- sided urothelial thickening suggesting ascending infectious process UA on admission demonstrated significant nitrates and leukocyte Estrace as well as too numerous to count WBCs The patient has improved significantly overnight, with only one mild fever Cultures have shown GNR in urine. Flu swab negative Cultures 06/28/19 blood cultures 2 NGTD 06/28/19 urine cultures Escherichia coli, insensitive to Zosyn Antibiotics Total Antibiotic Day 3 Vancomycin Day 2 Zosyn Day 2 Plan stop Zosyn, switched to Rocephin Stop vancomycin we will slow IV maintenance fluids (2) Pyelonephritis Current Visit: Yes Status: Acute Assessment and Plan: pyelonephritis, treatment and plan as above (3) Liver mass Current Visit: Yes Status: Acute Assessment and Plan: Incidental finding of very large liver mass, likely represents hemangioma Laboratory evaluation showed liver function within normal limits except for INR 1.5 Attempt to order MRI today DVT Prophylaxis: SCDs - Time Spent with Patient Total time spent is greater than 50% in coordination of care (as documented) at patient's floor/unit and/or counseling patient: Internal Medicine: Result - Labs CBC & Chem 7: 06/30/19 05:32 06/30/19 05:32 Labs: Short CBC 06/29/19 06/30/19 Range/Units 13:03 05:32 WBC 7.9 (4.3-11.1) K/mcL Hgb 10.6 L 10.0 L (11.5-15.4) g/dL Hct 33.5 L 32.0 L (35.3-44.9) % Plt Count 147 (140-400) K/mcL Neutrophils # 6.6 (1.6-8.9) K/mcL BMP 06/30/19 05:32 Sodium 138 Potassium 3.2 L Chloride 108 H Carbon Dioxide 19 L BUN 10 Creatinine 0.55 L Glucose 75 Calcium 7.5 L Liver Function 06/30/19 Range/Units 05:32 Total Bilirubin 0.6 (0.3-1.0) mg/dL AST 23 (13-39) Units/L ALT 17 (7-52) Units/L Alkaline Phosphatase 106 H (34-104) Units/L Albumin 2.9 L (3.5-5.7) g/dL - ABG Interpretation ABG results: PT/INR, D-dimer PT 13.8 Seconds (9.4-12.1) H 06/30/19 05:32 __ <Garrick Sparrow - Last Filed: 06/30/19 16:08> (1) Sepsis Qualifiers: Sepsis type: sepsis due to unspecified organism Sepsis acute organ dysfunction status: without acute organ dysfunction Qualified Code(s): A41.9 - Sepsis, unspecified organism
[2019-06-30] MEDS: cefTRIAXone 1,000 MG in Water for inj. (sterile) 10 ML IVP SCH (13:33)
[2019-06-30] MEDS ORDERED: Gadolinium Contrast Agent (WT Based) IV PRN (13:33)
--- NOTE | 2019-06-30 16:17 | Electrocardiograph Report ---
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
[2019-07-01] MEDS: Acetaminophen 325 MG TABLET PO PRN (02:36)
[2019-07-01] MEDS: 0.9 % Sodium Chloride 1,000 ML IVC SCH (02:37)
[2019-07-01 06:04] LABS: Basophils % 0.2 %; Eosinophils % 0.7 %; Hematocrit 32.9 % (35.3-44.9); Hemoglobin 10.4 g/dL (11.5-15.4); Immature Granulocytes % 0.4 % (0-4); Lymphocytes # 0.7 K/mcL (0.6-4.6); Mean Corpuscular HGB Conc 31.6 g/dL (31.6-35.5); Mean Corpuscular Hemoglobin 31.4 pg (28.0-33.3); Mean Corpuscular Volume 99.4 fL (83.0-100.0); Monocytes # 0.4 K/mcL (0.0-1.3); Neutrophils # 4.3 K/mcL (1.6-8.9); Platelet Count 161 K/mcL (140-400); Red Blood Count 3.31 M/mcL (3.82-4.97); Red Cell Distribution Width 17.2 % (11.5-14.5); Segmented Neutrophils % 79.7 %; White Blood Count 5.4 K/mcL (4.3-11.1)
[2019-07-01 06:25] LABS: BUN/Creatinine Ratio 13 (6-26); Blood Urea Nitrogen 6 mg/dL (6-20); Calcium 7.8 mg/dL (8.6-10.3); Carbon Dioxide 21 mEq/L (23-29); Chloride 107 mEq/L (98-107); Glucose 84 mg/dL (70-105); Osmolality,Calculated 285 (280-300); Potassium 3.3 mEq/L (3.5-5.1); Sodium 139 mEq/L (136-145); eGFR For African Americans > 60 (> 60); eGFR For Non-African Americans > 60 (> 60)
[2019-07-01] MEDS ORDERED: Isovue-370 500 ML BOTTLE IVP ONE (09:26)
[2019-07-01] MEDS: cefTRIAXone 1,000 MG in Water for inj. (sterile) 10 ML IVP SCH (11:40)
[2019-07-01] MEDS: *HR* HYDROcodone/Acet 5/325 mg TABLET PO PRN (14:06)
--- NOTE | 2019-07-01 15:44 | Internal Med Progress Note ---
<Anthony Deshpande - Last Filed: 07/01/19 17:24> Hospitalist Progress Note - Encounter Date of Encounter: 07/01/19 - Exam Vitals: Temp Pulse Resp BP Pulse Ox 99.5 F 80 17 114/77 97 07/01/19 14:35 07/01/19 14:35 07/01/19 14:35 07/01/19 14:35 07/01/19 14:35 - Assessment and Plan (1) Acute pyelonephritis Current Visit: Yes Status: Acute (2) Hypokalemia Current Visit: Yes Status: Acute (3) Hemangioma of liver Current Visit: Yes Status: Acute (4) Sepsis Current Visit: Yes Status: Acute - Time Spent with Patient Total time spent is greater than 50% in coordination of care (as documented) at patient's floor/unit and/or counseling patient: Internal Medicine: Result - Labs CBC & Chem 7: 07/01/19 05:26 07/01/19 05:26 Labs: Short CBC 07/01/19 Range/Units 05:26 WBC 5.4 (4.3-11.1) K/mcL Hgb 10.4 L (11.5-15.4) g/dL Hct 32.9 L (35.3-44.9) % Plt Count 161 (140-400) K/mcL Neutrophils # 4.3 (1.6-8.9) K/mcL BMP 07/01/19 05:26 Sodium 139 Potassium 3.3 L Chloride 107 Carbon Dioxide 21 L BUN 6 Creatinine 0.46 L Glucose 84 Calcium 7.8 L - ABG Interpretation ABG results: PT/INR, D-dimer PT 13.8 Seconds (9.4-12.1) H 06/30/19 05:32 - Impressions Impressions Abdomen MRI 07/01/19 07:45 IMPRESSION: 1. Large lesion in the liver measuring approximately 20 x 14 x 14 cm replacing the right hepatic lobe is most compatible with a giant hemangioma. 2. Interval appearance since 06/28/2019 of moderate bilateral effusions with bibasilar lung opacities. 3. Mild right upper quadrant abdominal ascites. D/ / 07/01/2019 09:34:16 Gladys Mahoney MD / dami Interpreting Provider: Gladys Mahoney MD Abdomen/Pelvis CT 07/01/19 13:53 IMPRESSION: 1. 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 2. Small bilateral pleural effusions with lower lobe atelectasis or pneumonia. 3. Ascites. 4. Indeterminate left lung nodules 3.7 mm or less. RECOMMENDATIONS: Fleischner Society guidelines for follow-up and management of incidentally detected pulmonary nodules: Multiple Solid Nodules: Nodule size less than 6 mm In a low-risk patient, no routine follow-up. In a high-risk patient, optional CT at 12 months. -Low risk patients include individuals with minimal or absent history of smoking and other known risk factors. - High risk patients include individuals with a history or smoking or known risk factors. Radiology 2017 http://pubs.rsna.org/doi/full/10.1148/radiol.8253247330 D/ / 07/01/2019 14:12:18 Jacobo Calderon MD / emily Interpreting Provider: Jacobo Calderon MD Chest CT 07/01/19 13:53 IMPRESSION: 1. 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 2. Small bilateral pleural effusions with lower lobe atelectasis or pneumonia. 3. Ascites. 4. Indeterminate left lung nodules 3.7 mm or less. RECOMMENDATIONS: Fleischner Society guidelines for follow-up and management of incidentally detected pulmonary nodules: Multiple Solid Nodules: Nodule size less than 6 mm In a low-risk patient, no routine follow-up. In a high-risk patient, optional CT at 12 months. -Low risk patients include individuals with minimal or absent history of smoking and other known risk factors. - High risk patients include individuals with a history or smoking or known risk factors. Radiology 2017 http://pubs.rsna.org/doi/full/10.1148/radiol.5864184748 D/ / 07/01/2019 14:12:18 Jacobo Calderon MD / emily Interpreting Provider: Jacobo Calderon MD Consult Discharge Plan - Plan Referrals: Lindsey Forte CNP [Primary Care Provider] - - Attending Attestation I examined this patient and my medical decision-making was reviewed with the Resident Physician on 07/01/19. I agree with the documented findings, disposition and treatment plan as described except to the extent set forth below. Ms Emerson is currently admitted for acute pyelonephritis. She remains moderate to high risk due to potential for worsening clinical status. Ms Emerson has still been having fevers. Pain controlled. No GI issues. No new issues. Exam: Alert. Comfortable. NC. EOMI. Mucus membranes dry. Neck supple. Heart reg. No wheeze. Abd soft. No edema. No rash. Moves all extremities. Plan Continue IV abx. Continue supportive care CT today to r/o abscess Further diagnoses and plan as above. <Garrick Sparrow - Last Filed: 07/01/19 18:04> Hospitalist Progress Note - Encounter Date of Encounter: 07/01/19 Time of Encounter: 09:45 - Subjective Interval History: The patient is resting comfortably in bed at time of examination. She says that she does continue to have some shortness of breath and dry cough, however otherwise is doing well. She had no nausea or vomiting overnight. She continues have some lower right abdominal pain but it has improved from yesterday. She otherwise has no acute complaints and feels well. - Exam Vitals: Temp Pulse Resp BP Pulse Ox 99.5 F 80 17 114/77 97 07/01/19 14:35 07/01/19 14:35 07/01/19 14:35 07/01/19 14:35 07/01/19 14:35 Exam: Gen: Vitals noted. NAD Eyes: anicteric sclerae, moist conjunctivae; no lid-lag HENT: Atraumatic; oropharynx clear with moist mucous membranes and no mucosal ulcerations; normal hard and soft palate Neck: Trachea midline; supple, no thyromegaly or lymphadenopathy Cardiac: RRR, no murmur, +S1/S2 Pulmonary: CTA bilaterally, no wheezes, rales or rhonchi, equal chest expansion Abdomen: soft, nontender, no guarding. No masses or hepatosplenomegaly MSK: ROM intact, no joint swelling noted Extremities: no BLE edema, nontender calf, no cyanosis or clubbing Skin: Normal temperature, turgor and texture; no rash, ulcers or subcutaneous nodules Neuro: moves all extremities, no focal deficits. Psych: Appropriate mood and behavior. A&Ox3 - Assessment and Plan (1) Sepsis Current Visit: Yes Status: Acute Assessment and Plan: sepsis secondary to acute pyelonephritis, resolved SIRS Criteria at time of diagnosis: T 102, HR 103, RR 20, BP 88/55. sources pyelonephritis Abdominal CT on 06/28/19 demonstrates right perinephric inflammation and right-sided urothelial thickening suggesting ascending infectious process UA on admission demonstrated significant nitrates and leukocyte Estrace as well as too numerous to count WBCs The patient has improved significantly overnight, with only one mild fever again Cultures have shown GNR in urine. Flu swab negative MRI of the abdomen did demonstrate hemangioma however there was also ascites and pleural effusions Cultures 06/28/19 blood cultures 2 NGTD 06/28/19 urine cultures Escherichia coli, insensitive to Zosyn Antibiotics Total Antibiotic Day 4 Rocephin day 2 Plan Continue Rocephin Continue IV maintenance fluids Given unknown cause of recurrent fever, L CT chest and abdomen/pelvis (2) Pyelonephritis Current Visit: Yes Status: Acute Assessment and Plan: Improved dramatically, plan as above (3) Liver mass Current Visit: Yes Status: Acute Assessment and Plan: 20 x 14 x 14 cm giant hemangioma which essentially replaces the right hepatic lobe demonstrated on liver protocol MRI All this is essentially benign, the patient may opt to have this embolized in the future We will defer this to primary care DVT Prophylaxis: SCDs - Time Spent with Patient Total time spent is greater than 50% in coordination of care (as documented) at patient's floor/unit and/or counseling patient: Internal Medicine: Result - Labs CBC & Chem 7: 07/01/19 05:26 07/01/19 05:26 Labs: Short CBC 07/01/19 Range/Units 05:26 WBC 5.4 (4.3-11.1) K/mcL Hgb 10.4 L (11.5-15.4) g/dL Hct 32.9 L (35.3-44.9) % Plt Count 161 (140-400) K/mcL Neutrophils # 4.3 (1.6-8.9) K/mcL BMP 07/01/19 05:26 Sodium 139 Potassium 3.3 L Chloride 107 Carbon Dioxide 21 L BUN 6 Creatinine 0.46 L Glucose 84 Calcium 7.8 L - ABG Interpretation ABG results: PT/INR, D-dimer PT 13.8 Seconds (9.4-12.1) H 06/30/19 05:32 - Impressions Impressions Abdomen MRI 07/01/19 07:45 IMPRESSION: 1. Large lesion in the liver measuring approximately 20 x 14 x 14 cm replacing the right hepatic lobe is most compatible with a giant hemangioma. 2. Interval appearance since 06/28/2019 of moderate bilateral effusions with bibasilar lung opacities. 3. Mild right upper quadrant abdominal ascites. D/ / 07/01/2019 09:34:16 Gladys Mahoney MD / dami Interpreting Provider: Gladys Mahoney MD Abdomen/Pelvis CT 07/01/19 13:53 IMPRESSION: 1. 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 2. Small bilateral pleural effusions with lower lobe atelectasis or pneumonia. 3. Ascites. 4. Indeterminate left lung nodules 3.7 mm or less. RECOMMENDATIONS: Fleischner Society guidelines for follow-up and management of incidentally detected pulmonary nodules: Multiple Solid Nodules: Nodule size less than 6 mm In a low-risk patient, no routine follow-up. In a high-risk patient, optional CT at 12 months. -Low risk patients include individuals with minimal or absent history of smoking and other known risk factors. - High risk patients include individuals with a history or smoking or known risk factors. Radiology 2017 http://pubs.rsna.org/doi/full/10.1148/radiol.1605029413 D/ / 07/01/2019 14:12:18 Jacobo Calderon MD / emily Interpreting Provider: Jacobo Calderon MD Chest CT 07/01/19 13:53 IMPRESSION: 1. 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 2. Small bilateral pleural effusions with lower lobe atelectasis or pneumonia. 3. Ascites. 4. Indeterminate left lung nodules 3.7 mm or less. RECOMMENDATIONS: Fleischner Society guidelines for follow-up and management of incidentally detected pulmonary nodules: Multiple Solid Nodules: Nodule size less than 6 mm In a low-risk patient, no routine follow-up. In a high-risk patient, optional CT at 12 months. -Low risk patients include individuals with minimal or absent history of smoking and other known risk factors. - High risk patients include individuals with a history or smoking or known risk factors. Radiology 2017 http://pubs.rsna.org/doi/full/10.1148/radiol.1776956577 D/ / 07/01/2019 14:12:18 Jacobo Calderon MD / emily Interpreting Provider: Jacobo Calderon MD <Anthony Deshpande - Last Filed: 07/01/19 17:24> (4) Sepsis Qualifiers: Sepsis type: Escherichia coli Sepsis acute organ dysfunction status: without acute organ dysfunction Qualified Code(s): A41.51 - Sepsis due to Escherichia coli [E. coli] <Garrick Sparrow - Last Filed: 07/01/19 18:04> (1) Sepsis Qualifiers: Sepsis type: Escherichia coli Sepsis acute organ dysfunction status: without acute organ dysfunction Qualified Code(s): A41.51 - Sepsis due to Escherichia coli [E. coli]
[2019-07-01] MEDS: Sennosides/Docusate Sodium TABLET PO SCH (21:26)
[2019-07-02 07:05] VITALS: BP 119/80
[2019-07-02] MEDS: Acetaminophen 325 MG TABLET PO PRN (07:53)
[2019-07-02] MEDS: Sennosides/Docusate Sodium TABLET PO SCH (07:54)
--- NOTE | 2019-07-02 08:26 | Discharge Summary ---
<Garrick Sparrow - Last Filed: 07/02/19 15:42> - NOTES TO OUTPATIENT PROVIDER Notes to Outpatient Provider: The patient presented with pyelonephritis. CT abdomen and pelvis found incidental mass in the liver. MRI liver showed giant hemangioma. Discharged on Levaquin as well as Lasix due to mild fluid overload. Lung CT found incidental 3.3mm nodule, f/u in 1yr may be beneficial Date of Encounter: 07/02/19 Time of Encounter: 08:50 - Discharge Diagnosis (1) Sepsis Priority: Primary Status: Acute Qualifiers: Sepsis type: Escherichia coli Sepsis acute organ dysfunction status: without acute organ dysfunction Qualified Code(s): A41.51 - Sepsis due to Escherichia coli [E. coli] (2) Pyelonephritis Priority: Primary Status: Acute (3) Liver mass Priority: Secondary Status: Acute (4) Lung nodule < 6cm on CT Priority: Secondary Status: Acute Hospital course: Dear Doctors, I recently had the opportunity to care for this patient during their recent hospital stay at [facility]. Mrs. Emerson is a 48-year-old woman with no significant medical history who presented initially to the emergency department with right-sided lower back pain and pelvic pain. She was diagnosed with a UTI/right sided Pyelonephritis. Over the course the patient's stay, she was found to have severe UTI causing sepsis which required significant fluid repletion and antibiotic use. Initially we started the patient on Rocephin, however she maintained febrile and slightly hypotensive so we broaden the spectrum to vancomycin and Zosyn. The following day we did find out that the patient had Escherichia coli in her urine which was and sensitive to Zosyn, so we did transition the patient back to Rocephin, however she was doing very well at this time. She did have a CT in the ER which demonstrated a very large mass in her liver which was suspicious for hemangioma. When the patient's to feel a little bit better, we did get MRI of the liver which showed a giant hemangioma nearly replacing the right lobe of the liver that was not necessarily suspicious for malignancy. Throughout the course of her hospitalization, the patient also did start to develop some shortness of breath, cough that was dry, and continued to have some fever throughout the course. I did order a CT of the chest and abdomen which demonstrated bilateral pleural effusions and some ascites as well as a left-sided 3.3mm Lung nodule. Still, the patient continued to improve, and she became ready for discharge. She remained slightly short of breath which is likely secondary to the effusions. She will be discharged with follow-up troponin primary care physi gay on oral antibiotics and with a short duration of Lasix due to her bilateral pleural effusions. Dx: Sepsis, pyelonephritis, giant hepatic hemangioma, left lung nodule Pertinent tests/consults: -CT abdomen and pelvis on 06/28/19 demonstrated right perinephric inflammation with right-sided urothelial thickening suggesting a sinning infectious process and large right hepatic mass measuring 15.3 x 17.2 cm with a central scar -MRI abdomen demonstrated a large lesion of the liver approximately 20 x 14 x 14 cm replacing the right hepatic lobe and most compatible with a giant hemangioma -CT chest/abdomen/pelvis demonstrated stable giant hemangioma occupying the right hepatic lobe, small bilateral pleural effusions with lower lobe atelectasis, ascites and indeterminant left lung nodules 3.7mm or less A disc with radiology imaging has been sent with the patient. Urine culture demonstrated Escherichia coli sensitive to Levaquin Flu swab was negative Follow up: Follow-up with primary care within a week. May need follow-up lung CT in 1 year. Tests pending: Blood cultures finalizing, currently NGTD Med changes: -Levaquin 750 mg by mouth daily for 4 days -Lasix 20 mg by mouth daily for 5-7 days, or until breathing improves Mental status: awake, fully oriented Code status: Full code Time spent on discharge: 35 minutes It has been my pleasure participating in this patient's care. Please contact me with any questions or concerns regarding their hospital stay. Sincerely, Garrick Sparrow, DO Discharge discussed with: patient, family, nurse, case management - Time Spent with Patient Total time spent providing and/or coordinating discharge services: - Discharge Medications Prescriptions: New Levofloxacin [Levaquin] 750 mg PO DAILY #4 tablet Acetaminophen [Tylenol] 650 mg PO Q6HR PRN tablet PRN Reason: Mild Pain/Fever Furosemide [Lasix] 20 mg PO DAILY #7 tablet Continued Multivitamin [Daily Multiple Vitamin] 1 each PO DAILY Home Medications: Multivitamin [Daily Multiple Vitamin] 1 each PO DAILY 06/28/19 [History] Acetaminophen [Tylenol] 650 mg PO Q6HR PRN tablet 07/02/19 [Rx] Furosemide [Lasix] 20 mg PO DAILY #7 tablet 07/02/19 [Rx] Levofloxacin [Levaquin] 750 mg PO DAILY #4 tablet 07/02/19 [Rx] Allergies/Adverse Reactions: Allergy/AdvReac Type Severity Reaction Status Date / Time No Known Allergies Allergy Verified 06/28/19 11:55 Date of admission: 06/30/19 11:59 Primary care physician: Lindsey Forte CNP Discharging clinician: Garrick Sparrow Anticipated date of discharge: 07/02/19 - Constitutional Vitals: Temp Pulse Resp BP Pulse Ox 98.5 F 71 16 119/80 96 07/02/19 07:00 07/02/19 07:00 07/02/19 07:00 07/02/19 07:00 07/02/19 07:00 Exam: Gen: Vitals noted. NAD Eyes: anicteric sclerae, moist conjunctivae; no lid-lag HENT: Atraumatic; oropharynx clear with moist mucous membranes and no mucosal ulcerations; normal hard and soft palate Neck: Trachea midline; supple, no thyromegaly or lymphadenopathy Cardiac: RRR, no murmur, +S1/S2 Pulmonary: CTA bilaterally, no wheezes, rales or rhonchi, equal chest expansion Abdomen: soft, nontender, no guarding. No masses or hepatosplenomegaly MSK: ROM intact, no joint swelling noted Extremities: no BLE edema, nontender calf, no cyanosis or clubbing Skin: Normal temperature, turgor and texture; no rash, ulcers or subcutaneous nodules Neuro: moves all extremities, no focal deficits. Psych: Appropriate mood and behavior. A&Ox3 - Patient Status Disposition: Home, Self-Care Condition: Good Functional capacity at discharge: independent ambulation Overall status at discharge: patient is progressing back to baseline - Discharge Instructions Instructions: Urinary Tract Infection in Women (DC), Sepsis (DC) Follow Up With: Lindsey Forte CNP [Primary Care Provider] - 07/10/19 2:20 pm Forms: Inpatient Work/School Release Additional Instructions: Med Changes -Take Levaquin 750mg for 4 days -Take Lasix 20mg for 5-7 day or until breathing has improved Return to ED if symptoms continue or worsen. Follow-up with PCP in 3-5 days if possible. - Diet and Activity Activity: increase activity as tolerated Diet: advance to your usual diet <Anthony Deshpande Jordan - Last Filed: 07/02/19 18:39> Orders not resulted at time of discharge: Pending orders 06/28/19 15:11 Culture,Blood [BC] Stat Date of Encounter: 07/02/19 - Discharge Diagnosis (1) Acute pyelonephritis Priority: Secondary Status: Acute (2) Hypokalemia Priority: Secondary Status: Resolved (3) Hemangioma of liver Priority: Secondary Status: Chronic (4) Sepsis Status: Acute Qualifiers: Sepsis type: Escherichia coli Sepsis acute organ dysfunction status: without acute organ dysfunction Qualified Code(s): A41.51 - Sepsis due to Escherichia coli [E. coli] Hospital course: Ms. Emerson is a 48 year old female - Time Spent with Patient Total time spent providing and/or coordinating discharge services: 34min Date of admission: 06/30/19 11:59 Primary care physician: Lindsey Forte CNP - Constitutional Vitals: Temp Pulse Resp BP Pulse Ox 98.5 F 71 16 119/80 96 07/02/19 07:00 07/02/19 07:00 07/02/19 07:00 07/02/19 07:00 07/02/19 07:45 - Attending Attestation I examined this patient and my medical decision-making was reviewed with the Resident Physician on 07/02/19. I agree with the documented findings, disposition and treatment plan as described except to the extent set forth below. Ms Emerson has been admitted for acute pyelonephritis. She has improved with IV abx. She currently is afebrile and ready for discharge home. She has some fluid overload and will take diuretic at home. Exam Alert Comfortable. NC. EOMI. Mucus membranes dry. Heart not tachy No wheeze Abd soft Plan DC home on PO abx.
[2019-07-02] MEDS ORDERED: levoFLOXacin 750 MG TABLET PO ONE (08:31)
[2019-07-02] MEDS ORDERED: Furosemide 20 MG TABLET PO SCH (10:00)
== END 2019-07-02 11:31 | disposition home or self-care (01) | DRG 689 ==
LOC: EMEROOARM 11:28 → 3ANU 11:28 → SUATTDRO 14:20 → 3ANU 16:00 → SUATTDRO 06-30 11:59
PROVIDERS: ADMIT Internal Medicine; ATTEND Internal Medicine

== ENCOUNTER 2020-05-20 12:04 | Observation (INO) ==
[2020-05-20] MEDS ORDERED: *HR* Adenosine 6 MG/2 ML SYRINGE IVP ONE (12:05)
[2020-05-20 12:30] LABS: Basophils # 0.1 K/mcL (0.0-0.2); Eosinophils # 0.2 K/mcL (0.0-0.6); Eosinophils % 2.6 %; Hematocrit 42.5 % (35.3-44.9); Hemoglobin 12.8 g/dL (11.5-15.4); Immature Granulocytes % 0.3 % (0-4); Lymphocytes # 1.6 K/mcL (0.6-4.6); Lymphocytes % 21.8 %; Mean Corpuscular HGB Conc 30.1 g/dL (31.6-35.5); Mean Corpuscular Hemoglobin 29.6 pg (28.0-33.3); Mean Corpuscular Volume 98.4 fL (83.0-100.0); Mean Platelet Volume 8.9 fL (9.4-12.4); Monocytes # 0.6 K/mcL (0.0-1.3); Monocytes % 8.8 %; Neutrophils # 4.8 K/mcL (1.6-8.9); Platelet Count 722 K/mcL (140-400); Red Blood Count 4.32 M/mcL (3.82-4.97); Red Cell Distribution Width 16.1 % (11.5-14.5); Segmented Neutrophils % 65.5 %; White Blood Count 7.3 K/mcL (4.3-11.1)
[2020-05-20 12:32] LABS: INR 1.1; Prothrombin Time 12.4 Seconds (9.4-12.1)
[2020-05-20 12:35] LABS: Activated Partial Thrombo Time 30.9 Seconds (26.0-36.0)
[2020-05-20 12:52] LABS: Troponin I 0.04 ng/mL (< 0.04)
[2020-05-20 13:04] LABS: BUN/Creatinine Ratio 33 (6-26); Blood Urea Nitrogen 20 mg/dL (6-20); Calcium 10.6 mg/dL (8.6-10.3); Carbon Dioxide 27 mEq/L (23-29); Chloride 100 mEq/L (98-107); Glucose 93 mg/dL (70-105); Magnesium 2.1 mg/dL (1.6-2.6); Osmolality,Calculated 284 (280-300); Potassium 4.3 mEq/L (3.5-5.1); Sodium 136 mEq/L (136-145); Thyroid Stimulating Hormone 3.074 mcIU/mL (0.340-5.600); eGFR For African Americans > 60 (> 60); eGFR For Non-African Americans > 60 (> 60)
[2020-05-20 13:28] LABS: Amphetamine Screen,Urine Negative ng/mL (Cutoff=1000); Barbiturate Screen,Urine Negative ng/mL (Cutoff=200); Benzodiazepines Screen,Urine Negative ng/mL (Cutoff=200); Cannabinoid Screen,Urine Negative ng/mL (Cutoff = 50); Cocaine Screen,Urine Negative ng/mL (Cutoff= 300); Opiate Screen,Urine Negative ng/mL (Cutoff=300); Phencyclidine Screen,Urine Negative ng/mL (Cutoff=25)
[2020-05-20] MEDS ORDERED: Naloxone 0.4 MG/ML INJ IVP PRN (14:33)
[2020-05-20] MEDS ORDERED: Perflutren Lipid Microsphere 1.3 ML in 0.9 % Sodium Chloride 8.7 ML IVP PRN (14:36)
[2020-05-20] MEDS: 0.9 % Sodium Chloride 1,000 ML IVC SCH (16:56)
[2020-05-20] MEDS: Aspirin 81 MG TAB.CHEW PO SCH (16:59)
[2020-05-20] MEDS ORDERED: *HR* Heparin 5,000 UNIT/ML VIAL SQ SCH (18:00)
[2020-05-20] MEDS ORDERED: Acetaminophen 325 MG TABLET PO PRN (18:37)
[2020-05-20] MEDS ORDERED: *HR* Heparin 5,000 UNIT/ML VIAL IVP ONE (20:34)
[2020-05-20] MEDS ORDERED: *HR* Heparin 5,000 UNIT/ML VIAL IVP PRN (20:34)
[2020-05-20 21:18] LABS: Hematocrit 36.7 % (35.3-44.9); Hemoglobin 11.3 g/dL (11.5-15.4); Mean Corpuscular HGB Conc 30.8 g/dL (31.6-35.5); Mean Corpuscular Volume 97.3 fL (83.0-100.0); Mean Platelet Volume 8.9 fL (9.4-12.4); Platelet Count 599 K/mcL (140-400); Red Blood Count 3.77 M/mcL (3.82-4.97); Red Cell Distribution Width 16.4 % (11.5-14.5); White Blood Count 7.1 K/mcL (4.3-11.1)
[2020-05-20 21:26] LABS: Heparin anti-factor XA UFH 0.04 IU/mL (0.30-0.70)
[2020-05-20 21:27] LABS: INR 1.1; Prothrombin Time 12.9 Seconds (9.4-12.1)
[2020-05-20] MEDS: Heparin 25,000UNIT/250ML 1/2NS 25,000 UNIT/250 ML IV.SOLN IVC SCH (21:53)
[2020-05-21] MEDS: 0.9 % Sodium Chloride 1,000 ML IVC SCH ×3 (03:09→23:46)
[2020-05-21 03:48] LABS: Basophils % 0.7 %; Eosinophils # 0.2 K/mcL (0.0-0.6); Eosinophils % 2.7 %; Hematocrit 33.7 % (35.3-44.9); Hemoglobin 10.5 g/dL (11.5-15.4); Immature Granulocytes % 0.3 % (0-4); Lymphocytes # 1.3 K/mcL (0.6-4.6); Lymphocytes % 22.2 %; Mean Corpuscular HGB Conc 31.2 g/dL (31.6-35.5); Mean Corpuscular Hemoglobin 30.4 pg (28.0-33.3); Mean Corpuscular Volume 97.7 fL (83.0-100.0); Mean Platelet Volume 9.1 fL (9.4-12.4); Monocytes # 0.5 K/mcL (0.0-1.3); Monocytes % 8.3 %; Platelet Count 549 K/mcL (140-400); Red Blood Count 3.45 M/mcL (3.82-4.97); Red Cell Distribution Width 16.5 % (11.5-14.5); Segmented Neutrophils % 65.8 %
[2020-05-21 04:05] LABS: BUN/Creatinine Ratio 30 (6-26); Blood Urea Nitrogen 14 mg/dL (6-20); Carbon Dioxide 24 mEq/L (23-29); Chloride 106 mEq/L (98-107); Glucose 87 mg/dL (70-105); Magnesium 1.9 mg/dL (1.6-2.6); Osmolality,Calculated 284 (280-300); Phosphorous 3.8 mg/dL (2.7-4.5); Potassium 3.8 mEq/L (3.5-5.1); Sodium 137 mEq/L (136-145); eGFR For African Americans > 60 (> 60); eGFR For Non-African Americans > 60 (> 60)
[2020-05-21] MEDS: *HR* Heparin 5,000 UNIT/ML VIAL IVP PRN ×2 (04:10→17:02)
[2020-05-21] MEDS ORDERED: Regadenoson 0.4 MG/5 ML SYRINGE IVP ONE (06:24)
[2020-05-21] MEDS ORDERED: Docusate Oral Soln 100 MG/10 ML UDC PO PRN (07:45)
[2020-05-21] MEDS ORDERED: Ibuprofen 400 MG TABLET PO PRN (07:45)
[2020-05-21] MEDS: Aspirin 81 MG TAB.CHEW PO SCH (09:48)
[2020-05-21] MEDS: Heparin 25,000UNIT/250ML 1/2NS 25,000 UNIT/250 ML IV.SOLN IVC SCH (20:50)
[2020-05-21] MEDS ORDERED: MOM Conc 10 ML UD.LIQ PO PRN (20:51)
[2020-05-22 01:36] LABS: Basophils # 0.1 K/mcL (0.0-0.2); Basophils % 0.8 %; Eosinophils # 0.2 K/mcL (0.0-0.6); Hemoglobin 10.4 g/dL (11.5-15.4); Immature Granulocytes % 0.2 % (0-4); Lymphocytes # 1.3 K/mcL (0.6-4.6); Lymphocytes % 22.4 %; Mean Corpuscular HGB Conc 30.6 g/dL (31.6-35.5); Mean Corpuscular Hemoglobin 30.3 pg (28.0-33.3); Mean Corpuscular Volume 99.1 fL (83.0-100.0); Mean Platelet Volume 9.2 fL (9.4-12.4); Monocytes # 0.4 K/mcL (0.0-1.3); Monocytes % 7.3 %; Neutrophils # 3.9 K/mcL (1.6-8.9); Platelet Count 508 K/mcL (140-400); Red Blood Count 3.43 M/mcL (3.82-4.97); Red Cell Distribution Width 16.1 % (11.5-14.5); Segmented Neutrophils % 66.3 %; White Blood Count 5.9 K/mcL (4.3-11.1)
[2020-05-22 01:44] LABS: BUN/Creatinine Ratio 24 (6-26); Blood Urea Nitrogen 11 mg/dL (6-20); Calcium 8.9 mg/dL (8.6-10.3); Carbon Dioxide 22 mEq/L (23-29); Chloride 105 mEq/L (98-107); Chol/HDL Ratio 3.8 (0-4.9); Cholesterol 138 mg/dL (< 200); Glucose 96 mg/dL (70-105); HDL Cholesterol 36 mg/dL (40-59); LDL Cholesterol,Calculated 81 mg/dL (< 100); Osmolality,Calculated 283 (280-300); Potassium 3.7 mEq/L (3.5-5.1); Sodium 137 mEq/L (136-145); Triglycerides 106 mg/dL (< 150); eGFR For African Americans > 60 (> 60); eGFR For Non-African Americans > 60 (> 60)
[2020-05-22] MEDS: *HR* Heparin 5,000 UNIT/ML VIAL IVP PRN (03:32)
[2020-05-22] MEDS ORDERED: Regadenoson 0.4 MG/5 ML SYRINGE IVP ONE (07:07)
[2020-05-22 07:11] VITALS: BP 111/72
[2020-05-22 08:06] LABS: Estimated Average Glucose 97 mg/dl
[2020-05-22] MEDS: Aspirin 81 MG TAB.CHEW PO SCH (09:58)
[2020-05-22] MEDS: 0.9 % Sodium Chloride 1,000 ML IVC SCH (09:58)
== END 2020-05-22 12:06 | disposition home or self-care (01) ==
LOC: 2ANU 12:04 → EMEROOARM 12:04 → SUATTDRO 14:33 → 2ANU 15:56
PROVIDERS: ADMIT Student in an Organized Health Care Education/Training Program; ATTEND Internal Medicine